=== PATIENT | female | born 1935 | race Caucasian/White ===

== ENCOUNTER → 2021-03-04 10:34 | Day surgery (SDC) | payer MEDICARE ==
--- NOTE | 2021-03-03 16:45 | NUR ---
ATTEMPTED TO CONFIRM PT APPT FOR 03/04/21 NO ANSWER
--- NOTE | ~2021-03-04 | HEMODYNAMI ---
PATIENT:KARSTEN DURANT MEDICAL RECORD: [id number] : 39 LOCATION:[facility] ADMISSION DATE: 03/04/21 Generatedon:111:16 Patient name: KARSTEN DURANT Patient #: [id number] SSN: DO B: 1935 Date of study: 03/04/2021 Page: Of Hemodynamic Procedure Report Patient Data Patient Demographics Procedure consent was obtained First Name: KARSTEN Gender: Female Last Name: CARLEEN : 1935 Patient #: [id number] Age: 85 year(s) Race: Unknown Additional ID: [id number] Contact details [address]: [address] [place] [address] State: [place] City: [place] Zip code: [address] Admission Admission Data Admission Date: 03/04/2021 Admission Time: 10:34 Procedure Procedure Types Cath Procedure Peripheral Cath Diagnostic Procedure Miscellaneous Procedure Description Procedure Date Procedure Date: 03/04/2021 Procedure Start Time: 11:07 Procedure End Time: 11:15 Procedure Staff Name Function Eva Pisano MD Performing Physician Dean Alejandre RT Monitor LEVI GRIFFITH RT Monitor Procedure Data Cath Procedure Fluoroscopy Diagnostic fluoroscopy Total fluoroscopy Time: 0.4 time: 0.4 min min Hemodynamics Rest Pre Cath Intra NCS Post Cath Procedure Log Time Note 10:57:17 Dean Alejandre RT (R) (CV) sent for patient. Start room use. 10:57:27 Patient received from Outpatients to IR Alert and oriented. Tansferred to table in Supine position. 10:57:30 Signed procedure consent form obtained from patient. 10:57:32 Correct patient and procedure confirmed by team. 10:57:45 SAFE-T PLUS MYELOGRAM TRAY opened to sterile field. 10:58:07 - 10:58:11 Pre-procedure instructions explained to patient. 10:58:11 Pre-op teaching completed and patient verbalized understanding. 10:58:49 PT ALLERGIC TO CODEINE 10:58:54 Is patient on blood thinner?No 10:59:11 Left Hip was prepped with betadine and draped in sterile fashion. 11:04:27 Physician arrived 11:04:28 --------ALL STOP TIME OUT------ 11:04:28 Final Timeout: patient, procedure, and site verified with staff and physician. All members of the team are in agreement. 11:04:35 Left groin site verified by team. 11:04:41 Sedation plan: Local Anesthetic Medication:Lidocaine 11:06:51 Procedure started. 11:06:51 Full Disclosure recording started 11:07:10 Local anesthetic to Left Hip with Lidocaine 1% by Eva Pisano MD.INITIAL ACCESS ONLY 11:14:33 Procedure ended.(Physican Out) 11:14:48 Fluoroscopy time 00.40 minutes. 11:14:54 Dose Area Product 5 mGy/cm. 11:15:09 Post-op/insertion site Left Hip dressed using a Bandaid. 11:15:28 Procedure and supply charges have been captured, reviewed, submitted an d are correct. 11:15:32 See physician's report for complete and final results. 11:15:34 Procedure ended. 11:15:34 Full Disclosure recording stopped Device Usage Item Name Manufacture Quantity Catalog Hospital Part Current Minimal Lot# / Number Charge Number Stock Stock Serial# Code SAFE-T [employer] 1 [id number] PLUS MYELOGRAM TRAY Signature Audit [place] Stage Time Signature Unsigned Intra-Procedure 03/04/2021 LEVI GRIFFITH RT 11:16:00 AM ([facility] [address] [place] [address]
== END | disposition home or self-care (01) ==
LOC: D.RAD 10:34
PROVIDERS: ATTEND Orthopaedic Surgery
DX: M16.12 Unilateral primary osteoarthritis, left hip (principal); M70.62 Trochanteric bursitis, left hip